=== PATIENT | male | born 1985 | race African-American/Black ===

== ENCOUNTER 2016-08-16 17:25 | Emergency (ER) | payer SELFPAY ==
[2016-08-16 17:38] VITALS: BP 128/66; PULSE 81; RESP 16; TEMP 97.7; O2SAT 98
--- NOTE | 2016-08-16 17:40 | EDPHY ---
H & P Stated Complaint: pt was passed out on the girls soccer field at [facility]. ETOH + HPI/ROS: Chief Complaint: Alcohol intoxication, altered mental status, vomiting HPI: 31-year-old male found passed out an the soccer field at [employer]. Patient smelled of alcohol. States he has been drinking alcohol and using marijuana. Had 1 episode of vomiting. Was unable to ambulate was brought here for evaluation. Patient denies any falls or head injury. No fevers or chills. No falls. ROS: 10 point Review of Systems is negative except as noted in the HPI. PMH: Denies Medications: Denies Allergies: No known drug allergies Social History: Positive for smoking, daily alcohol, positive for marijuana use Family History: non-contributory Physical Exam: Gen: Awake, Alert, slurred speech, smells of alcohol and emesis HEENT: Nose: no rhinorrhea Eyes: PERRLA, EOMI Mouth: Moist mucosa Neck: Supple, no JVD Chest: nontender, lungs clear to auscultation Heart: S1, S2 normal, no murmur Abd: Soft, non-tender, no guarding Back: no CVA tenderness, no midline tenderness Ext: no edema, non-tender Skin: no rash Neuro: CN II-XII intact, Sensation grossly intact, Strength 5/5 in bilateral upper and lower extremities - Medical/Surgical History Hx Asthma: No Hx Chronic Respiratory Disease: No Hx Diabetes: No Hx Cardiac Disease: No Hx Renal Disease: No Hx Cirrhosis: No Hx Alcoholism: Yes Hx HIV/AIDS: No Hx Splenectomy or Spleen Trauma: No Other PMH: etohism - Social History Smoking Status: Current every day smoker Constitutional: Initial Vital Signs Temperature (C) 36.5 C 08/16/16 17:25 Heart Rate 81 08/16/16 17:25 Respiratory Rate 16 08/16/16 17:25 Blood Pressure 128/66 H 08/16/16 17:25 O2 Sat (%) 98 08/16/16 17:25 O2 Delivery Mode Room Air Allergies/Adverse Reactions: No Known Allergies Allergy (Unverified 11/16/13 20:59) Home Medications: Medication Instructions Recorded NK [No Known Home Meds] 09/15/13 Medical Decision Making ED Course/Re-evaluation: Patient is now awake and appropriate. Ambulating unassisted to the bathroom. No current complaints. Medically cleared for the [facility] Departure - Departure Disposition: Home, Routine, Self-Care Clinical Impression: Alcoholic intoxication Condition: Good Instructions: Alcohol Intoxication (ED) Additional Instructions: Please try to avoid binge drinking alcohol. Referrals: Patient,NotPresent [Primary Care Provider] - As per Instructions
== END 2016-08-16 20:22 | disposition home or self-care (01) ==
LOC: EDUNIT#
DX: F10.129 Alcohol abuse with intoxication, unspecified (principal); F17.200 Nicotine dependence, unspecified, uncomplicated